=== PATIENT | female | born 1990 | race Asian ===

== ENCOUNTER 2023-12-23 18:39 | Emergency (ER) | payer MEDICAID ==
[~2023-12-23] VITALS: Ht 165.1 cm; Wt 56.7 kg
[2023-12-23 19:10] VITALS: BP_SYST 101; PULSE 89; RESP 18; TEMP 98.5; O2SAT 97
[2023-12-23 20:28] LABS: STREPTOCOCCUS A SCREEN (RAPID) POSITIVE (NEGATIVE)
[2023-12-23 20:31] LABS: COVID19 ANTIGEN SOFIA FIA NEGATIVE (NEGATIVE)
[2023-12-23 20:37] LABS: INFLUENZA TYPE A Negative (NEGATIVE); INFLUENZA TYPE B NEGATIVE (NEGATIVE)
[2023-12-23] MEDS: DEXAMETHASONE SOD PHOSPHATE 10 MG/ML VIAL IM ONE (20:40)
[2023-12-23] MEDS: AMOXICILLIN 500 MG CAPSULE PO ONE (20:40)
[2023-12-23] MEDS: IBUPROFEN 600 MG TABLET PO ONE (20:40)
[2023-12-23] MEDS ORDERED: IBUP-1969 PO (20:48)
[2023-12-23] MEDS ORDERED: AMOX500C2 PO (20:48)
[2023-12-23 20:53] VITALS: BP_SYST 101; PULSE 89; RESP 18; TEMP 98.5; O2SAT 97
== END 2023-12-23 20:53 | disposition home or self-care (01) ==
LOC: SED 18:39
DX: J02.0 Streptococcal pharyngitis (principal); Z20.822 Contact with and (suspected) exposure to COVID-19
CPT/HCPCS: 99283; 87426; 86403; 36415; 96372; 87804 ×2; J1100